=== PATIENT | male | born 1955 | race African-American/Black ===

== ENCOUNTER 2022-02-11 11:43 | Emergency (ER) | payer OTHER ==
[~2022-02-11] VITALS: Ht 177.8 cm; Wt 99.8 kg
--- NOTE | 2022-02-11 11:44 | NUR ---
pt BIB [facility] c/o lower back pain, spasm, and tingling sensation of BLE. pt is a/o x4, denies CP, SOB, dizziness, n/v.
[2022-02-11] MEDS ORDERED: KETOROLAC TROMETHAMINE 60 MG INJ IM ONE ×2 (11:45→12:05)
[2022-02-11] MEDS ORDERED: LORAZEPAM 0.5 MG TABLET PO ONE (11:45)
--- NOTE | 2022-02-11 11:45 | NUR ---
Dr Mustafa in room 4 for MSE
[2022-02-11] MEDS ORDERED: LORAZEPAM 0.5 MG TABLET ONE (12:06)
--- NOTE | 2022-02-11 13:00 | NUR ---
pt went down for CT
[2022-02-11] MEDS ORDERED: MORPHINE SULFATE 4 MG/1 ML DISP.SYRIN IM ONE (13:15)
[2022-02-11] MEDS ORDERED: MORPHINE SULFATE 4 MG/1 ML DISP.SYRIN ONE (13:22)
[2022-02-11] MEDS ORDERED: CYCL10TA9 PO (13:58)
--- NOTE | 2022-02-11 14:15 | NUR ---
Patient discharged to home in stable condition. Written and verbal after care instructions given. Patient verbalizes understanding of instructions. Stressed follow up or return to ER for worsening s/s. Patient is A/O x4, steady gait, no distress noted.
[2022-02-11 14:20] VITALS: BP 115/70
== END 2022-02-11 14:15 | disposition home or self-care (01) ==
LOC: ER 11:43
DX: M54.50 Low back pain, unspecified (principal); M62.830 Muscle spasm of back; E78.5 Hyperlipidemia, unspecified
CPT/HCPCS: 74176; 96372 ×2; 99284; J1885; J2270; A4663